=== PATIENT | female | born 1945 | race Two or more races ===

== ENCOUNTER 2022-10-08 11:50 | Emergency (ER) | payer OTHER | END 2022-10-08 13:37 | disposition home or self-care (01) | LOC: CSHERS 11:50 | DX: M79.651 Pain in right thigh (principal); I25.10 Atherosclerotic heart disease of native coronary artery without angina pectoris; I25.2 Old myocardial infarction; E11.9 Type 2 diabetes mellitus without complications; E78.00 Pure hypercholesterolemia, unspecified; Z87.891 Personal history of nicotine dependence; Z86.73 Personal history of transient ischemic attack (TIA), and cerebral infarction without residual deficits ==

== ENCOUNTER 2025-03-11 12:17 | Inpatient (IN) | payer MEDICARE, OTHER ==
[~2025-03-11 12:17] MED LIST: Iopamidol 370 76% 100 ML VIAL ONE
[2025-03-11 13:39] LABS: #Basophils 0.03 10x3/uL (0.0-0.2); #Eosinophils 0.07 10x3/uL (0.0-0.5); #Monocytes 0.43 10x3/uL (0.0-1.1); #Neutrophils 6.90 10x3/uL (1.5-8.4); %Basophils 0.4 % (0.0-2.0); %Eosinophils 0.9 % (0.0-6.0); %Lymphocytes 8.8 % (18.0-47.0); %Monocytes 5.3 % (0.0-10.0); %Neutrophils 84.5 % (40.0-75.0); Hematocrit 35.9 % (34.9-44.5); Hemoglobin 11.7 g/dL (12.0-15.5); Mean Corpuscular Hemoglobin 29.7 pg (27.0-33.0); Mean Corpuscular Volume 91.1 fL (81.6-98.3); Platelet Count 247 10x3/uL (150-450); Red Blood Cell (RBC) Count 3.94 10x6/uL (3.90-5.03); White Blood Cell (WBC) Count 8.16 10x3/uL (3.5-10.5)
[2025-03-11 13:59] LABS: ALT (SGPT) 11 U/L (Less than 34); AST (SGOT) 18 U/L (11-34); Albumin 3.7 g/dL (3.1-4.5); Alkaline Phosphatase 72 U/L (40-110); Anion Gap 12 mmol/L (10-20); BUN (Urea Nitrogen) 12 mg/dL (9.8-20.1); Bilirubin, Total 0.7 mg/dL (0.3-1.2); Calc. Creatinine Clearance 0 mL/min (70-130); Calcium 9.9 mg/dL (7.8-10.44); Carbon Dioxide 29 mmol/L (23-31); Chloride 106 mmol/L (98-107); Globulin 3.3 g/dL (2.4-3.5); Glucose 136 mg/dL (83-110); Potassium 4.2 mmol/L (3.5-5.1); Sodium 143 mmol/L (136-145)
[2025-03-11 14:04] LABS: Troponin I 0.024 ng/mL (< 0.028)
[2025-03-11] MEDS ORDERED: Nitroglycerin 2% Ointment 1 INCH/1 GM Packet ONE (14:17)
[2025-03-11] MEDS ORDERED: Furosemide 40 MG (4 mL) VIAL ONE (14:17)
[2025-03-11] MEDS ORDERED: Calcium Carbonate 500 MG ChewTAB PO PRN (17:53)
[2025-03-11] MEDS ORDERED: Senokot S 8.6-50 MG TAB PO PRN (17:53)
[2025-03-11] MEDS ORDERED: Melatonin 3 MG TAB PO PRN (17:53)
[2025-03-11] MEDS ORDERED: Ondansetron PF 4 MG/2 ML Vial IVP PRN (17:53)
[2025-03-11] MEDS ORDERED: Acetaminophen 325 MG TAB PO PRN (17:53)
[2025-03-11] MEDS ORDERED: hydrALAZINE 20 MG/ML VIAL SLOW IVP PRN (18:01)
[2025-03-11 21:22] VITALS: BMI 24.2
[2025-03-12 05:33] LABS: #Basophils Less than 0.03 10x3/uL (0.0-0.2); #Eosinophils 0.10 10x3/uL (0.0-0.5); #Monocytes 0.48 10x3/uL (0.0-1.1); #Neutrophils 4.64 10x3/uL (1.5-8.4); %Basophils 0.1 % (0.0-2.0); %Eosinophils 1.4 % (0.0-6.0); %Lymphocytes 27.1 % (18.0-47.0); %Monocytes 6.7 % (0.0-10.0); %Neutrophils 64.6 % (40.0-75.0); Hematocrit 34.7 % (34.9-44.5); Hemoglobin 10.9 g/dL (12.0-15.5); Mean Corpuscular Hemoglobin 28.2 pg (27.0-33.0); Mean Corpuscular Volume 89.7 fL (81.6-98.3); Platelet Count 228 10x3/uL (150-450); Red Blood Cell (RBC) Count 3.87 10x6/uL (3.90-5.03); White Blood Cell (WBC) Count 7.19 10x3/uL (3.5-10.5)
[2025-03-12] MEDS: Furosemide 40 MG (4 mL) VIAL SLOW IVP SCH (05:40)
[2025-03-12 05:46] LABS: Anion Gap 12 mmol/L (10-20); BUN (Urea Nitrogen) 13 mg/dL (9.8-20.1); Calc. Creatinine Clearance 38 mL/min (70-130); Calcium 10.0 mg/dL (7.8-10.44); Carbon Dioxide 29 mmol/L (23-31); Chloride 104 mmol/L (98-107); Glucose 92 mg/dL (83-110); Potassium 3.8 mmol/L (3.5-5.1); Sodium 141 mmol/L (136-145)
[2025-03-12] MEDS: Cyanocobalamin (Vitamin B-12) 1,000 MCG TAB PO SCH (10:28)
[2025-03-12] MEDS: Enoxaparin 40 MG (0.4 mL) SYRINGE SC SCH (10:28)
[2025-03-12] MEDS: Aspirin 81 mg Enteric Coated Tablet PO SCH (12:11)
[2025-03-12 13:57] LABS: Cardiac Risk 3.4 (Less than 4.5); Cholesterol 199.0 mg/dl (< 200 Desired); HDL Cholesterol 59.0 mg/dL (>60 Neg Risk); LDL Cholesterol, Calculated 127.0 mg/dL; Triglycerides 64.0 mg/dL (Less than 150)
[2025-03-12 16:46] LABS: Glucose, Urine (Dipstick) Normal (Negative); Leukocyte Negative (Negative); Protein, Urine (Dipstick) 15 mg/dl (Neg-Trace); Specific Gravity, Urine 1.005 (1.005-1.030)
[2025-03-12] MEDS: Carvedilol 3.125 MG TAB PO SCH (17:29)
[2025-03-13 05:09] LABS: #Basophils Less than 0.03 10x3/uL (0.0-0.2); #Eosinophils 0.16 10x3/uL (0.0-0.5); #Monocytes 0.53 10x3/uL (0.0-1.1); #Neutrophils 3.74 10x3/uL (1.5-8.4); %Basophils 0.2 % (0.0-2.0); %Eosinophils 2.6 % (0.0-6.0); %Lymphocytes 26.8 % (18.0-47.0); %Monocytes 8.7 % (0.0-10.0); %Neutrophils 61.5 % (40.0-75.0); Hematocrit 34.8 % (34.9-44.5); Hemoglobin 11.0 g/dL (12.0-15.5); Mean Corpuscular Hemoglobin 28.4 pg (27.0-33.0); Mean Corpuscular Volume 89.7 fL (81.6-98.3); Platelet Count 219 10x3/uL (150-450); Red Blood Cell (RBC) Count 3.88 10x6/uL (3.90-5.03); White Blood Cell (WBC) Count 6.08 10x3/uL (3.5-10.5)
[2025-03-13 05:23] LABS: Anion Gap 12 mmol/L (10-20); BUN (Urea Nitrogen) 16 mg/dL (9.8-20.1); Calc. Creatinine Clearance 33 mL/min (70-130); Calcium 9.6 mg/dL (7.8-10.44); Carbon Dioxide 31 mmol/L (23-31); Chloride 101 mmol/L (98-107); Glucose 103 mg/dL (83-110); Potassium 3.5 mmol/L (3.5-5.1); Sodium 140 mmol/L (136-145)
[2025-03-13] MEDS: Aspirin 81 mg Enteric Coated Tablet PO SCH (08:55)
[2025-03-13] MEDS: Enoxaparin 30 MG (0.3 mL) SYRINGE SC SCH (08:56)
[2025-03-13] MEDS: Ezetimibe 10 MG TAB PO SCH (12:45)
[2025-03-13 16:56] VITALS: BP 167/66; TEMP 97.7
[2025-03-13] MEDS ORDERED: Metoprolol Succinate XL 25 MG ER.TAB PO SCH (21:00)
[2025-03-14] MEDS ORDERED: Furosemide 40 MG TAB PO SCH (09:00)
[2025-03-14] MEDS ORDERED: Ezetimibe 10 MG TAB PO SCH (09:00)
== END 2025-03-13 16:58 | disposition home health service (06) | DRG 291 ==
LOC: CSHERS 12:17 → CSHERHOLD 16:59 → CSHTELE 21:19
PROVIDERS: ADMIT Internal Medicine; ATTEND Hospitalist
DX: I13.0 Hypertensive heart and chronic kidney disease with heart failure and stage 1 through stage 4 chronic kidney disease, or unspecified chronic kidney disease (principal); I50.23 Acute on chronic systolic (congestive) heart failure; N18.30 Chronic kidney disease, stage 3 unspecified; E11.22 Type 2 diabetes mellitus with diabetic chronic kidney disease; I25.10 Atherosclerotic heart disease of native coronary artery without angina pectoris; I16.0 Hypertensive urgency; Z79.899 Other long term (current) drug therapy; Z86.73 Personal history of transient ischemic attack (TIA), and cerebral infarction without residual deficits; Z95.5 Presence of coronary angioplasty implant and graft
CPT/HCPCS: 36415; 71045; 71275; 80048; 80053; 80061; 81003; 82607; 83036; 83880; 84443; 84484; 85025; 85379; 93005; 93306; 94760; 94762; 96374; J1650; J1940; Q9967